=== PATIENT | male | born 1990 | race Caucasian/White ===

== ENCOUNTER 2017-07-05 22:49 | Emergency (ER) | payer SELFPAY ==
[~2017-07-05] VITALS: Ht 182.9 cm; Wt 87.0 kg
[2017-07-05 23:03] VITALS: BP 162/108
[2017-07-05 23:34] LABS: HEMATOCRIT 46.2 % (38.0-50.0); HEMOGLOBIN 16.4 G/DL (12.5-16.6); MCH 31.8 PG (29.0-34.0); MCHC 35.5 G/DL (30.0-36.0); MCV 89.5 FL (86-99); PLATELET COUNT 263 K/uL (156-360); RBC DIS.WIDTH-CV 11.7 % (11.8-14.6); RBC DIS.WIDTH-SD 37.8 % (39-53); RED BLOOD COUNT 5.16 M/uL (4.00-5.50); WHITE BLOOD COUNT 10.1 K/uL (4.1-10.2)
[2017-07-05 23:46] LABS: CHLORIDE 103 mEq/L (99-109); POTASSIUM 3.7 mEq/L (3.7-5.4); SODIUM 144 mEq/L (136-147)
[2017-07-05 23:48] LABS: GLUCOSE 99 mg/dL (70-99)
[2017-07-05 23:52] LABS: CREATININE 0.9 mg/dL (0.6-1.3)
[2017-07-05 23:53] LABS: UREA NITROGEN (BUN) 10 mg/dL (9-23)
[2017-07-05 23:57] LABS: GFR ESTIMATE (CALCULATED) > 59 mL/min/ (58.99-99999)
[2017-07-06 03:36] LABS: LIPASE 31 U/L (1.0-51.0)
== END 2017-07-06 04:50 | disposition left against medical advice (07) ==
LOC: EME 22:49
DX: K92.0 Hematemesis (principal); Z53.21 Procedure and treatment not carried out due to patient leaving prior to being seen by health care provider
CPT/HCPCS: 80048; 83690; 85014; 85018; 85027; 86850; 86900; 86901; 93005

== ENCOUNTER 2017-12-28 14:30 | Emergency (ER) | payer BC ==
[~2017-12-28] VITALS: Ht 185.4 cm; Wt 87.0 kg
[2017-12-28 17:01] LABS: BASOPHIL (%) 1.3 % (0-1); BASOPHIL COUNT 0.1 K/uL (0-0.1); EOSINOPHIL (%) 4.4 % (0-5); EOSINOPHIL COUNT 0.3 K/uL (0-0.3); IMMATURE GRANULOCYTE (%) 0.2 % (0.0-0.7); LYMPHOCYTE (%) 20.8 % (15-42); LYMPHOCYTE COUNT 1.3 K/uL (1.0-2.8); MCH 32.4 PG (29.0-34.0); MCHC 36.4 G/DL (30.0-36.0); MCV 89.1 FL (86-99); MONOCYTE (%) 7.8 % (3-12); MONOCYTE COUNT 0.5 K/uL (0-0.8); NEUTROPHIL (%) 65.5 % (45-76); NEUTROPHIL COUNT 4.2 K/uL (1.8-6.4); PLATELET COUNT 228 K/uL (156-360); RBC DIS.WIDTH-CV 13.8 % (11.8-14.6); RED BLOOD COUNT 4.94 M/uL (4.00-5.50); WHITE BLOOD COUNT 6.4 K/uL (4.1-10.2)
[2017-12-28 17:09] LABS: ALBUMIN 4.5 g/dL (3.2-4.8); CHLORIDE 98 mEq/L (99-109); POTASSIUM 3.9 mEq/L (3.7-5.4); SODIUM 142 mEq/L (136-147)
[2017-12-28 17:12] LABS: GLUCOSE 80 mg/dL (70-99); TOTAL PROTEIN 7.8 g/dL (6.4-8.3)
[2017-12-28 17:13] LABS: TOTAL BILIRUBIN 0.6 mg/dL (0.0-1.0)
[2017-12-28 17:14] LABS: SERUM ETHYL ALCOHOL 296 mg/dL
[2017-12-28 17:15] LABS: ALKALINE PHOSPHATASE 133 IU/L (3-129); CREATININE 0.9 mg/dL (0.6-1.3); GFR ESTIMATE (CALCULATED) > 59 mL/min/ (58.99-99999)
[2017-12-28 17:16] LABS: UREA NITROGEN (BUN) 7 mg/dL (9-23)
[2017-12-28 17:17] LABS: AST (GOT) 226 IU/L (2-34)
[2017-12-28 17:18] LABS: ALT (GPT) 48 IU/L (3-49)
[2017-12-28 18:51] LABS: AMPHETAMINE NEGATIVE (500 ng/mL); BARBITURATES NEGATIVE (200 ng/mL); BENZODIAZEPINES PRESUMPTIVE POSITIVE (150 ng/mL); BUPRENORPHINE NEGATIVE (10 ng/mL); COCAINE NEGATIVE (150 ng/mL); METHADONE NEGATIVE (200 ng/mL); METHAMPHETAMINE NEGATIVE (500 ng/mL); OPIATES (MORPHINE) NEGATIVE (100 ng/mL); OXYCODONE NEGATIVE (100 ng/mL); PHENCYCLIDINE NEGATIVE (25 ng/mL); PROPOXYPHENE NEGATIVE (300 ng/mL); THC CANNABINOIDS NEGATIVE (50 ng/mL); TRICYCLIC ANTIDEPRESSANTS NEGATIVE (300 ng/mL)
[2017-12-28 19:23] LABS: BENZODIAZEPINES, URINE SCREEN POSITIVE (200 ng/mL)
[2017-12-29] MEDS ORDERED: LIBRIUM25 MG PO (03:45)
[2017-12-29 04:03] VITALS: BP 128/82
== END 2017-12-29 04:05 | disposition home or self-care (01) ==
LOC: EME 14:30
PROVIDERS: Emergency Medicine
DX: F10.239 Alcohol dependence with withdrawal, unspecified (principal); Y90.8 Blood alcohol level of 240 mg/100 ml or more; F41.9 Anxiety disorder, unspecified; F17.200 Nicotine dependence, unspecified, uncomplicated
CPT/HCPCS: 80053; 84999; 85025; 90839; 99281; 99285; G0480; J2060; J3411; J7030

== ENCOUNTER 2018-01-07 09:07 | Emergency (ER) | payer BC ==
[~2018-01-07] VITALS: Ht 185.4 cm; Wt 84.8 kg
[~2018-01-07 09:07] MED LIST: LIBRIUM25 MG PO
[2018-01-07 10:22] LABS: HEMATOCRIT 43.9 % (38.0-50.0); HEMOGLOBIN 16.2 G/DL (12.5-16.6); MCH 33.1 PG (29.0-34.0); MCHC 36.9 G/DL (30.0-36.0); MCV 89.8 FL (86-99); PLATELET COUNT 186 K/uL (156-360); RBC DIS.WIDTH-CV 14.4 % (11.8-14.6); RBC DIS.WIDTH-SD 46.9 % (39-53); RED BLOOD COUNT 4.89 M/uL (4.00-5.50); WHITE BLOOD COUNT 9.6 K/uL (4.1-10.2)
[2018-01-07 10:31] LABS: ALBUMIN 4.3 g/dL (3.2-4.8); CHLORIDE 94 mEq/L (99-109); POTASSIUM 3.1 mEq/L (3.7-5.4); SODIUM 143 mEq/L (136-147)
[2018-01-07 10:33] LABS: GLUCOSE 124 mg/dL (70-99); TOTAL PROTEIN 8.2 g/dL (6.4-8.3)
[2018-01-07 10:35] LABS: TOTAL BILIRUBIN 0.8 mg/dL (0.0-1.0)
[2018-01-07 10:36] LABS: SERUM ETHYL ALCOHOL 158 mg/dL
[2018-01-07 10:37] LABS: ALKALINE PHOSPHATASE 171 IU/L (3-129); CREATININE 0.9 mg/dL (0.6-1.3); GFR ESTIMATE (CALCULATED) > 59 mL/min/ (58.99-99999)
[2018-01-07 10:38] LABS: AST (GOT) 425 IU/L (2-34); UREA NITROGEN (BUN) 8 mg/dL (9-23)
[2018-01-07 10:40] LABS: ALT (GPT) 95 IU/L (3-49)
[2018-01-07 10:48] LABS: APPEARANCE CLEAR ((CLEAR)); BILIRUBIN NEGATIVE; BLOOD SMALL; COLOR AMBER ((YELLOW)); GLUCOSE (STRIP) 50; KETONES 5; LEUKOCYTES NEGATIVE; NITRITE NEGATIVE; PROTEIN (STRIP) >=500; SPECIFIC GRAVITY 1.022 (1.000-1.030)
[2018-01-07 10:54] LABS: BACTERIA NONE SEEN /HPF; EPITHELIAL CELLS RARE /HPF; HYALINE CASTS 15-20 /LPF; MUCUS 1+ /LPF; WHITE BLOOD CELLS 0-5 /HPF (0-5)
[2018-01-07 10:57] LABS: PHENCYCLIDINE NEGATIVE (25 ng/mL); THC CANNABINOIDS PRESUMPTIVE POSITIVE (50 ng/mL)
[2018-01-07 10:58] LABS: AMPHETAMINE NEGATIVE (500 ng/mL); BARBITURATES NEGATIVE (200 ng/mL); BENZODIAZEPINES PRESUMPTIVE POSITIVE (150 ng/mL); BUPRENORPHINE NEGATIVE (10 ng/mL); COCAINE NEGATIVE (150 ng/mL); METHADONE NEGATIVE (200 ng/mL); METHAMPHETAMINE NEGATIVE (500 ng/mL); OPIATES (MORPHINE) NEGATIVE (100 ng/mL); OXYCODONE NEGATIVE (100 ng/mL); PROPOXYPHENE NEGATIVE (300 ng/mL); TRICYCLIC ANTIDEPRESSANTS NEGATIVE (300 ng/mL)
[2018-01-07 11:33] LABS: BENZODIAZEPINES, URINE SCREEN POSITIVE (200 ng/mL)
[2018-01-07] MEDS ORDERED: ZOFRAN4 MG PO (12:05)
[2018-01-07 14:13] VITALS: BP 152/105
== END 2018-01-07 14:15 | disposition home or self-care (01) ==
LOC: EME 09:07
PROVIDERS: Emergency Medicine
DX: F10.229 Alcohol dependence with intoxication, unspecified (principal); F19.10 Other psychoactive substance abuse, uncomplicated; Y90.6 Blood alcohol level of 120-199 mg/100 ml; I10 Essential (primary) hypertension; F17.200 Nicotine dependence, unspecified, uncomplicated; F41.9 Anxiety disorder, unspecified
CPT/HCPCS: 80053; 81003; 84999; 85027; 99281; 99284; G0480